=== PATIENT | female | born 1955 | race Caucasian/White ===

== ENCOUNTER 2017-07-27 13:56 | Emergency (ER) | payer OTHER ==
[~2017-07-27] VITALS: Ht 162.6 cm; Wt 71.7 kg
--- NOTE | ~2017-07-27 | EKG ---
[address] [place] [address] ELECTROCARDIOGRAM REPORT Name: BEV BEACH Room #: DEP KATHRYN Drew#: [id number] Admission: 07/27/17 Attend Phys: Discharge: 07/27/17 Date of : 57 Report #: [id number] THIS REPORT FOR: //name// [facility] ED Test Date: 2017-07-27 Test Time: 14:55:19 Pat Name: BEV BEACH Department: Room: Gender: F Bullet Slugs Inspector: MZOOK : 1955 Requested By: Ramos Torres Order Number: [id number] MD: Braulio Condon Measurements Intervals Barnhart Rate: 110 P: 65 WI: 145 QRS: 58 QRSD: 117 T: 4 QT: 337 QTc: 456 Interpretive Statements Sinus tachycardia Nonspecific intraventricular conduction delay Borderline repolarization abnormality No previous ECG available for comparison Electronically Signed On 07-27-2017 21:20:49 RPG DEVELOPER by Braulio Condon [email or web address] <ELECTRONICALLY SIGNED> By: Braulio Condon MD 07/27/170 1455 1455 MD MELINA Lr
[2017-07-27 14:57] LABS: URINE BILIRUBIN NEGATIVE (Negative); URINE BLOOD NEGATIVE (Negative); URINE COLOR YELLOW; URINE GLUCOSE-RANDOM* NEGATIVE (Negative); URINE KETONES NEGATIVE (Negative); URINE LEUKOCYTES-REFLEX NEGATIVE (Negative); URINE PROTEIN (DIPSTICK) TRACE (Negative); URINE SPECIFIC GRAVITY 1.015 (1.005-1.035); URINE UROBILINOGEN 0.2 E.U./dl (0.2-1.0)
[2017-07-27 15:35] VITALS: BP 171/94
== END 2017-07-27 15:45 | disposition home or self-care (01) ==
LOC: ER 13:56
PROVIDERS: Emergency Medicine
DX: R03.0 Elevated blood-pressure reading, without diagnosis of hypertension (principal); F17.210 Nicotine dependence, cigarettes, uncomplicated; Z88.8 Allergy status to other drugs, medicaments and biological substances

== ENCOUNTER 2019-08-23 13:19 | Inpatient (IN) | payer OTHER ==
[~2019-08-23] VITALS: Ht 162.6 cm; Wt 52.5 kg
[2019-08-23 13:29] VITALS: BP 151/92
[2019-08-23 14:10] LABS: HEMATOCRIT 53.8 % (37.0-47.0); HEMOGLOBIN 18.3 gm/dL (12.0-15.0); PLATELET COUNT 316 thou/uL (150-400); RBC 5.38 mil/uL (4.20-5.00); RDW 14.5 % (10.5-14.5); WBC 10.9 thou/uL (4.0-11.0)
[2019-08-23 14:16] LABS: ANION GAP 11 mmol/L (7-16); BUN 15 mg/dL (7-18); CALCIUM 10.4 mg/dL (8.5-10.1); CHLORIDE 98 mmol/L (98-107); CO2 27 mmol/L (21-32); CREATININE 0.9 mg/dL (0.6-1.0); GLUCOSE 70 mg/dL (74-106); POTASSIUM 3.6 mmol/L (3.5-5.1); SODIUM 136 mmol/L (136-145)
[2019-08-23 14:18] LABS: URINE BILIRUBIN NEGATIVE (Negative); URINE BLOOD NEGATIVE (Negative); URINE CLARITY CLEAR; URINE COLOR YELLOW; URINE GLUCOSE-RANDOM* NEGATIVE (Negative); URINE KETONES NEGATIVE (Negative); URINE LEUKOCYTES-REFLEX NEGATIVE (Negative); URINE NITRITE-REFLEX NEGATIVE (Negative); URINE PROTEIN (DIPSTICK) TRACE (Negative); URINE UROBILINOGEN 0.2 E.U./dl (0.2-1.0)
[2019-08-23 14:25] LABS: ABSOLUTE NEUTROPHILS 8.6 thou/uL (1.4-8.2); ANISOCYTOSIS SLIGHT
[2019-08-23 14:26] LABS: ALBUMIN 4.3 g/dL (3.4-5.0); PHOSPHORUS 4.3 mg/dL (2.5-4.9); SALICYLATE 5.9 mg/dL (2.8-20.0); SGOT 20 U/L (15-37); SGPT 27 U/L (30-65); TOTAL BILIRUBIN 0.2 mg/dL (<0.1-1.0); TOTAL PROTEIN 8.6 g/dL (6.4-8.2); TROPONIN-I <0.06 ng/mL (<0.06)
[2019-08-23 14:29] LABS: AMP/METHAMP Negative (Negative); BARBITURATES Negative (Negative); BENZODIAZEPINES Negative (Negative); COCAINE Negative (Negative); METHADONE Negative (Negative); OPIATES Negative (Negative); PCP Negative (Negative)
--- NOTE | 2019-08-23 14:33 | EKG ---
[address] [place] [address] ELECTROCARDIOGRAM REPORT Name: BEV BEACH Room #: PRE M.REmili#: [id number] Admission: Attend Phys: Discharge: Date of : 57 Report #: [id number] THIS REPORT FOR: //name// [facility] ED Test Date: 2019-08-23 Test Time: 14:11:50 Pat Name: BEV BEACH Department: Room: Gender: F Biology Adjunct Instructor: patricio : 1955 Requested By: James Nance Order Number: [id number] MD: Braulio Condon Measurements Intervals [place] Rate: 106 P: 84 RI: 123 QRS: 76 QRSD: 82 T: 69 QT: 345 QTc: 459 Interpretive Statements Sinus tachycardia Biatrial enlargement Compared to ECG 07/27/2017 14:55:19 Electronically Signed On 08-23-2019 14:32:43 VETERINARY MEDICINE TEACHER by Braulio Condon [email or web address] <ELECTRONICALLY SIGNED> By: Braulio Condon MD 08/23/19 1432 1411 1411 Braulio Condon MD /SAMANTA
[2019-08-23 18:12] VITALS: BP 120/90
--- NOTE | 2019-08-23 18:49 | NUR ---
PT. ARRIVED FROM ER PER W/C. SHE IS A WHITE FEMALE. DURING THE ENTIRE TIME SHE WAS BEING ADMITTED SHE KEPT ASKING FOR PAIN MEDICATIONS AND ADD MEDICATIONS. SHE STATES SHE HAS NOT BEEN TAKING HER BIPOLAR MEDICATIONS SINCE ABOUT JUNE. SHE STATES SHE WAS DIAGNOSED WITH BIPOLAR ABOUT 20 YEARS AGO. SHE STATES SHE WAS BROUGHT HER BY A POLICE PERSON BECAUSE SHE WAS OUTSIDE WITHOUT CLOTHES OR SHOES TALKING TO THE NEIGHBORS. SHE WAS NOT MAKING ANY SENSE AND HAD A LOT OF FLIGHT OF IDEAS AND SO THE POLICE WAS CALLED AND SHE WAS BROUGHT HERE. SHE STATES SHE GOES TO THE [employer]. SHE STATES SHE HAS CHRONIC PAIN IN HER RIGHT LEG FROM OLD INJURIES. SHE HAS ALLERGIES TO HALDOL AND THORAZINE. SHE IS AWAKE AND ALERT TIMES 3. DR. LU WAS INFORMED OF HER ADMISSION. DR. MYERS NOTIFIED OF ADMISSION, BUT P.A. RAILROAD EMERGENCY SERVICES MANAGER WILL BE NOTIFIED AFTER 7 PM.
[2019-08-23 20:10] VITALS: BP 97/72
--- NOTE | 2019-08-24 04:23 | NUR ---
PT CALM ET COOPERATIVE. PT AMBULATES HALLS AD JOSE. PT WAS GIVEN TYLENOL 650MG PO PRN FOR R KNEE PAIN OF 4/10 WITH A REASSESSMENT SCORE OF 2/10. PT PERSEVERATING ON MEDICATIONS. PT STATES THAT SHE GETS ALL OF HER MEDICATIONS FROM DR. WORLEY'S OFFICE WITH [facility]. PT DENIES USING ANY RETAIL PHARMACY. PT WAS INFORMED THAT WE WOULD NEED TO WAIT UNTIL DAY SHIFT TO CALL DR. WORLEY'S OFFICE TO RECONCILE HER MEDICATION. PT VERBALIZED UNDERSTANDING. PT IN ET OUT OF ROOM SEVERAL TIMES THROUGHOUT NOC UNTIL AFTER MIDNIGHT WHEN PT SETTLED DOWN TO REST. WILL CONTINUE TO MONITOR PER PROTOCOL.
[2019-08-24 07:50] VITALS: BP 107/67
--- NOTE | 2019-08-24 11:37 | NUR ---
Sw met with pt to discuss her intake assesment and treatment plan. Pt admits t iractic behavior but justifies it and feels " misunderstood." Pt has services with [facility] and lives in [employer] housing. She could not identify her CM at [facility]. Pt feels like her housing might be comprimsed because of her behaviors. Sw educate dpt on role of SW and d/c planning. Pt is willing to particpate in inpt treatment.
--- NOTE | 2019-08-24 16:10 | NUR ---
0730 Up ambulating in halls without s/o distress. Alert and orientated X 4. Denies SI/HI. Multiple requests for different meds. States R knee is very painful 10/10. Tylenol given for pain. Breath sounds clear t/o, bilaterally equal. Reg HR auscultated. Color pink with brisk capillary refill and palpable peripheral pulses. Independent with voiding. Active bowel sounds over soft, flat abdomen. Spoke with DIVE SUPERINTENDENT Abood this am. 1500 States she is anxious. Quetipine given per prn order. Napped in room this afternoon. Multiple phone calls from/to family. Spoke with Dr. Kunz after several requests to see a physician. Now states she is hungry and requesting snacks. Kristopher crackers and peanut butter given. Wants Dr. Kunz to know that she wants to be restarted on her Synthroid. Will pass along msg.
[2019-08-24 21:03] VITALS: BP 110/62
--- NOTE | 2019-08-25 05:17 | NUR ---
PT CALM ET COOPERATIVE. PT CONTINUES TO CONSISTENTLY COME TO NURSE STATION TO ASK QUESTIONS ABOUT MINOR THINGS. PT WAS GIVEN TRAZODONE PRN FOR SLEEP ET TYLENOL PRN FOR PAIN THIS SHIFT. DENIES SI, HI, ET PSYCHOSIS. AMBULATES HALLS AD JOSE. WILL CONTINUE TO MONITOR PER PROTOCOL.
[2019-08-25 09:05] VITALS: BP 111/65
--- NOTE | 2019-08-25 10:56 | NUR ---
SW reviewed pt's chart and saw that she has been cooperative while on the unit. SW saw that she receives services through [facility]. SW will contact [facility] and attempt to locate her CM. SW team will continue to follow pt during her stay.
--- NOTE | 2019-08-25 13:45 | NUR ---
ASSUMED CARE OF PATIENT AT 0710 ON 08/25/19. PATIENT IN DAYROOM WATCHING TV WITH OTHER PATIENTS AT THIS TIME. PATIENT AMBULTAING IN [place] BEFORE BREAKFAST. PATIENT SITTING IN DAYROOM FRO BREAKFAST. MEDS TAKEN WHOLE WITHOUT DIFFICULTY. COMMUNICATING WITH OTHER PATIENTS WELL. DENIES SI/HI AND AVH AT 1120 PATIENT COMPLAINS OF PAIN AND REQUESTS TYLENOL. TYLENOL 2 TABS GIVEN. RATES PAIN 10 TO RIGHT KNEE. WILL CONTINUE TO ASSESS.
[2019-08-25 20:09] VITALS: BP 125/64
--- NOTE | 2019-08-25 23:04 | NUR ---
ASSUMED CARE ON 08/25/19 @ 19:15, UP AD JOSE, COMMING TO THE NURSES DESK REPEATEDLY ASKING FOR TYLENOL. ASSESSED FOR PAIN LEVEL OF 5/10 IN THE KNEE, AND PROVIDED PRN TYLENOL 650 @ 20:05. REPEATEDLY ASKS IF SHE IS BEING TAKEN OFF HER MEDICATIONS, REPEATS THE SAME QUESTIONS NUMEROUS TIMES. ORIENTED X4 NOTED TO BE ANXIOUS. DENIES SI, HI, AH AND VH. CURRENTLY IN BED WITH EYES CLOSED AND RESPIRATIONS EVEN AND UNLABORED. BED IN LOW POSITION, BED ALARM SET. WILL CONTINUE TO MONITOR Q 12 MIN FOR PATIENT SAFETY.
--- NOTE | 2019-08-26 03:19 | NUR ---
PATIENT AWAKENED @ 0308, TOILETED SELF AND CAME TO THE DAY ROOM. AGREED TO TAKE SEROQUEL 25 PO FOR ANXIETY ET RESTLESSNESS, AND TYLENOL 650 FOR 5/10 KNEE PAIN. NICOTINE PATCH STILL ON LEFT DELTOID, REMOVED TO AID IN SLEEPING.
[2019-08-26 03:22] VITALS: BP 125/64
[2019-08-26 05:18] LABS: FOLIC ACID 9.3 ng/mL (8.6-58.9)
--- NOTE | 2019-08-26 06:02 | NUR ---
SLEPT 9.4 HOURS
--- NOTE | 2019-08-26 07:30 | NUR ---
Assumed care of patient this am. Patient in room sleeping. Patient calm, content and overall pleasant. Patient ambulates without assistance. Patient takes medications whole with thin fluids. Patients states that she has pain in her knees. Patients assessment shows clear breath sounds, active bowel sounds, and s1 s2 heard with auscultation.
[2019-08-26 08:00] VITALS: BP 104/49
[2019-08-26 08:54] VITALS: BP 104/49
--- NOTE | 2019-08-26 12:06 | NUR ---
DE contacted [facility] and left a message for their early breastfeeding care specialist explaining that DE is attempting to locate pt's correctional casework specialist. SW team will continue to follow pt during her stay on this unit.
--- NOTE | 2019-08-26 14:28 | NUR ---
DE received a call from Ayden ([phone]) with [facility] stating that he has been contacted a few times in relation with pt. This last time she was outside wandering without proper clothes on for the weather. It is his belief that she needs a guardian. He has been in contact with her Sister Michelle Rivera ([phone]), who has also been paying pt's bills because pt is unable to. Pt is close to being evicted from her apartment due to non-payment, and her utilities are due for shut off. Ayden says Michelle is interested in being pt's guardian. DE said she will attempt to talk with pt about DPOA and about LIANA for her sister Michelle. Ayden also mentioned that pt has a history of erratic behaviors when she is not on her meds. DE asked if he knew who her casemanager was, and Ayden explained pt does not have one because she does not consistently take her meds. Ayden said that he and Officer Abdirahman with the [place] [employer] de[employer] is familiar with pt. DE talked with pt about DPOA. Pt immediately became suspicious and said she was told that DPOA means that someone else can control everything. SW provided education on DPOA vs Guardianship. Pt was paranoid that someone was going to attempt to assign her a DPOA. DE again explained that is not how that works. Pt is oriented to day, season, and current events. However, she is adamant she does not want a DPOA. DE received a call from Pamela Tillman with [facility] ([phone]) stating that she has been acting as pt's casemanager, but has not had one due to her non-compliance with medication. She has been seen by [facility] since 04/2017 but tends to not be compliant with meds. She said it was her plan to refer pt to adult casemanagement, as pt has only become known to her within the last week on a crisis basis. DE received a call from Aries with [facility] ([phone]) confirming that pt has a psych appt on 09/25 @0915a for crisis follow-up. DE talked with pt and asked her to sign a LIANA with [facility]. While she was very suspicious at first, after SW explained to her several times that she is not signing her rights away, and that the psych doctor would just like to review her records, she signed the release. SW talked with pt about her sister. Pt became very paranoid that SW would tell her all of her business. SW explained that she cannot tell her sister anything without her consent. Pt wanted to call her sister with SW in her presence. SW dialed the number in her office. No answer. SW left a message stating that her and pt were calling. Pt said that when her sister calls back she wants her to tell her that pt wants to speak with her, but does not want SW talking about anything concerning her care with her sister. SW explained that since she has not given consent she cannot talk to her sister about her care, and will follow her wishes. Pt explained that people think that she does witchcraft and she cried with SW. She apologized for appearing argumentative. She knows nothing about walking outside without clothing. She said at most she walked outside without her shoes. SW team will continue to follow pt during her stay on this unit.
[2019-08-26 19:23] VITALS: BP 112/66
--- NOTE | 2019-08-27 01:47 | NUR ---
Assessments completed. pt a&o but very anxious and forgetful. pt kept coming up to nurse with random questions and requests. prn meds given. pt is resting well. v/s have been stable. pt denies si/hi. no s/s of acute distress. will cont to monitor
[2019-08-27 09:46] VITALS: BP 139/71
--- NOTE | 2019-08-27 14:07 | NUR ---
ASSUMED CARE OF PATIENT AT 0720 ON 08/27/19. PATIENT SITTING IN DAYROOM QUIETLY ON COUCH. PATIENT WAITING FOR BREAKFAST AND DENIES NEEDS AT THIS TIME. 0830 PATIENT AMBULATING IN [place]. COMPLAINS OF PAIN TO RIGHT KNEE RATING AT A 10. TYLENOL 650 MG GIVEN PO WITH ROUTINE MEDICATION. PARTICIPATES IN GROUP WITH THE RECREATIONAL THERAPIST. PATIENT STATES PAIN DECREASED TO A 7 ON A NUMERIC PAIN SCALE. PATIENT TRANSPORTED VIA WC TO RADIOLOGY FOR CT OF THE HEAD, ACCOMPANIED BY MEDICAL RECORDS TECH AND NURSE SALES ACCOUNT COORDINATOR. PATIENT IN DAY ROOM AT 1155 FOR LUNCH. PATIENT ASKING MULTIPLE QUESTION WITH CONCERNS TO HER ANSWERS THAT ARE GIVE TO STAFF BY HERSELF. SHE WORRIES IF SHE IS ANSWERING INCORRECTLY THAT IT WILL AFFECT HER LEAVING AND GOING HOME. DENIES SI/HI & AVH.
--- NOTE | 2019-08-27 16:47 | NUR ---
AT 0800 BP 143/110 P 63, PT DENIES CHEST PAIN, DIZZINESS OR CONTRERAS. BP RECHECKED WITH RESULTS OF 120/48. DR BOLAÑOS VIEWED RESULTS AND ORDERED ORTHOSTATIC BP'S WITH PULSE. AT 1150 ORTHOSTATIC BP'S- STANDING BP 104/67 P 73/ SITTING BP 124/[address] BOLAÑOS VIEWED RESULTS.
--- NOTE | 2019-08-27 17:38 | NUR ---
DE received a phone call from pt's sister Michelle stating that the [facility] worker Ayden was sending her a listing of attorneys in [place]. It is Michelle's plan to get into contact with one loreta and then pursue guardianship. SW said ok, and that she cannot tell her anything because pt has not signed a LIANA. Michelle told SW that she spoke with pt after her visit with her daughter and another sister yesterday, and explained to her that if she does not know what is going on she cannot help her. She also revealed to pt that she paid her rent for her. Michelle explained that pt just got a substantial amount of money for [employer] and she has income, when she asked pt where that money was she responded with "I dont know." Pt several times said to SW that she spoke to sister and wants to sign a LIANA. Pt signed a LIANA with SW stating that she and staff can provide updates to Michelle. SW team will continue to follow pt during her stay on this unit.
--- NOTE | 2019-08-27 18:33 | NUR ---
AT 1755 SEROQUEL 25MG GIVE PO FOR ANXIETY- PATIENT REQUESTED MED. TYLENOL 650MG GIVEN FOR COMPLAINTS OF KNEE PAIN RATING A 7 ON NUMERIC PAIN SCALE.
[2019-08-27 20:17] VITALS: BP 132/69
--- NOTE | 2019-08-28 02:53 | NUR ---
ASSUMED CARE OF PATIENT ON 08/27/2019 AT 1915. BEV IS ALERT AND ORIENTED X3, SHE HAS BEEN CALM AND COOPERATIVE THROUGHOUT THE EVENING. SHE APPEARS WITH A EUTHYMIC AFFECT. SHE REPORTED INITIAL INSOMNIA AND REPORTED 'I HAD A NIGHTMARE OR SOMETHING AND I JUST WOKE UP AND IT SCARED ME.' ADMINISTERED PRN SEROQUEL ORDERED FOR ANXIETY. SHE DOES DENY SI HI AND FEELINGS OF DEPRESSION. SHE DENIES MEDICAL CONCERNS WITH NO S/S OF DISTRESS. NURSING WILL MAINTAIN ALL PRECAUTIONS TO ENSURE SAFETY AT ALL TIMES.
[2019-08-28 09:23] VITALS: BP 140/68
--- NOTE | 2019-08-28 12:01 | NUR ---
Up ambulating t/o unit without s/o distress. States R knee pain a 10, decreased to a 5 with Tylenol. Denies SI/HI. Alert and orientated X4. In testing this AM. Breath sounds clear t/o, bilaterally equal. Reg HR auscultated. Color pink with brisk capillary refill and palpable peripheral pulses. Active bowel sounds over soft, flat abdomen.
[2019-08-28 13:03] LABS: ALBUMIN 3.7 g/dL (3.4-5.0); CALCIUM 10.2 mg/dL (8.5-10.1); CREATININE 0.7 mg/dL (0.6-1.0); POTASSIUM 3.9 mmol/L (3.5-5.1); TOTAL BILIRUBIN 0.2 mg/dL (<0.1-1.0); TOTAL PROTEIN 7.5 g/dL (6.4-8.2)
[2019-08-28 13:44] LABS: HEMATOCRIT 44.4 % (37.0-47.0); HEMOGLOBIN 14.8 gm/dL (12.0-15.0); MCH 33.5 pg (26.0-34.0); MCHC 33.2 g/dL (28.0-37.0); MCV 100.9 fL (80.0-100.0); RBC 4.41 mil/uL (4.20-5.00); RDW 14.4 % (10.5-14.5); WBC 5.7 thou/uL (4.0-11.0)
[2019-08-28 19:36] VITALS: BP 134/63
--- NOTE | 2019-08-29 04:38 | NUR ---
PT CALM ET COOPERATIVE. PT LESS ATTENTION-SEEKING THIS SHIFT THAN PREVIOUSLY. TYLENOL 650MG PO GIVEN FOR R KNEE PAIN. SEROQUEL 25MG PO ET TRAZODONE 100MG PO GIVEN FOR ANXIETY ET INSOMINIA THIS SHIFT. PT AMBULATES HALLS AD JOSE. TOOK MEDICATIONS WHOLE WITHOUT DIFFICULTY. PT CURRENTLY RESTING IN BED WITH EYES CLOSED. WILL CONTINUE TO MONITOR PER PROTOCOL.
[2019-08-29 09:18] VITALS: BP 128/60
--- NOTE | 2019-08-29 11:36 | NUR ---
Nutrition: Pt NA x2 during RD visit to unit. With other staff (OT, later RN). Assessed by RD at start of week on 08/26, following up today. Despite low weight status with BMI 17.3, pt eating incredibly well all week. Often eating 80-100% of most meals. Meal average = 87% per the last 14 recorded meals over 5 days. Receiving Ensure Enlive BID for added energy benefit and drinking 75-100% of almost all supplements. This adds 750 kcals, 40 g protein/day. No new weights to review since 08/24. Met severe malnutrition criteria, but both PO and supplement intake are at very high rates. No new interventions to add at this time. Will continue to monitor po trends and future weights for any decline, otherwise keep as low nutrition risk.
--- NOTE | 2019-08-29 15:30 | NUR ---
Mariama approched me and asked me for medications to help "relax me". Mariama just finshed group dealing with relaxation. I asked if she had tried alternative methods of relaxation instead asking for medications. Mariama began talking about her sunglasses and going to the bathroom. I stated "you are not answering my question." She stated that she would go and sit down.
--- NOTE | 2019-08-29 16:21 | NUR ---
Up ambulating in halls without s/o distress. Alert and orientated x 3. Denies SI/HI. States pain improved with Tylenol, now about a 5 in R knee, chronic pain. Quetiapine given late morning per request for anxiety. Breath sounds clear t/o, bilaterally equal. Reg HR auscultated. Color pink with brisk capillary refill and palpable peripheral pulses, hands slightly cool. Voiding independently. Active bowel sounds over soft, flat abdomen. Testing being done by OT.
[2019-08-29 19:44] VITALS: BP 115/59
--- NOTE | 2019-08-30 03:46 | NUR ---
Pt calm et cooperative this shift. Pt ambulates halls ad yohan with steady gait. Pt took meds whole without difficulty. No behaviors noted this shift. AOX3 et all health assessments WNL. Pt socializes with peers on the unit. Pt was given Trazodone for insomnia PRN this shift. Currently resting in bed with eyes closed. Will continue to monitor per protocol.
[2019-08-30 07:30] VITALS: BP 106/68
[2019-08-30 10:09] VITALS: BP 106/68
--- NOTE | 2019-08-30 10:35 | NUR ---
0645 RESUMMED CARE FROM OVERNIGHT SHIFT, PATIENT UP IN DAY ROOM LESS ANXIOUS AND LESS INTRUSIVE. PATIENT ATE BREAKFAST TOOK MEDICATION WITHOUT INCIDENCE. PATIENT PARTICIPATED IN GROUPS, PATIENT WANTS TO GO HOME PATIENT COOPERATIVE WILL CONTINUE TO MONITOR FOR BEHAVIOR AND SAFETY.
--- NOTE | 2019-08-30 11:31 | NUR ---
SW and psych doctor met with pt and asked her if she had read her neuro psych report. She had not. She asked about her sister being her DPOA. The psych doctor and SW talked to her about guardianship because she may not be able to sign a DPOA. The psych doctor screened her again to see if she understood DPOA, and she could not stay on task. However, she did say she is okay with her sister being her guardian. She just wants to make sure it is a place that is located east and she can smoke cigarrettes outside. SW team will continue to follow pt during his stay on this unit.
[2019-08-30 14:32] LABS: CALCIUM 10.2 mg/dL (8.5-10.1); CREATININE 0.9 mg/dL (0.6-1.0); PHOSPHORUS 5.2 mg/dL (2.5-4.9)
[2019-08-30 19:56] VITALS: BP 136/65
--- NOTE | 2019-08-30 21:36 | NUR ---
Care assumed of patient at 1915: Patient seated on the couch at start of shift. Interacting fairly well with staff and peers. Patient alert and oriented x3-4. Patient primarily calm and cooperative. Patient did question nurse why we ask her "all these questions every day". Once nurse educated patient on reasoning, she answered all questions appropriately. Patient sarcastic at times. Denies SI/HI/AH/VH. No aggression or agitated observed at this time. Patient kindly and respectfully asked for HS snack. Ate 100% HS snack. Patient took HS medication whole without difficulty. Patient attention seeking at times. Patient was able to go to bed at a reasonable hour and appeared to be sleeping for approximately 30 minutes. However, patient is up now in the dayroom, sitting on the couch, rocking back and forth whenever she sees staff walking around or is looking at her. With no staff present, she is visualized sitting quietly watching TV. Patient had someone call to speak with her which had to be declined due to reaching her 2 phone call limit. Patient has not asked to use the phone. Patient took a shower this evening. Visualized pacing from her room to dayroom a couple different times this evening, however, it is not continuously.
--- NOTE | 2019-08-31 07:30 | NUR ---
Assumed care of patient this am. Patient sitting in [facility]. Patient ambulates without assistance. Patient takes medications whole with thin fluids. Patient affect soft. Patient denies pain. Patients assessment shows clear breath sounds, active bowel sounds, and s1 s2 heard with auscultation.
[2019-08-31 08:00] VITALS: BP 122/70
[2019-08-31 08:23] VITALS: BP 122/70
[2019-08-31 19:22] VITALS: BP 103/58
--- NOTE | 2019-08-31 22:17 | NUR ---
ASSUMED CARE ON 08/31/19 @ 19:15. PATIENT HAS A TOWEL WRAPPED AROUND HER HEAD, RECEIVED INFORMATION THAT THIS IS HER 4TH TIME TO WASH HER HAIR TODAY. PT ASKED IN THE EVENING ABOUT TAKING A SHOWER. REMINDED THAT SHE HAD SHOWERED AND WASHED HER HAIR X4, THAT SHE IS NOT TO TAKE ANOTHER SHOWER UNTIL TOMORROW AFTER BREAKFAST. COOPERATED WITH ASSESSMENT, TOOK MEDS PO WITH WATER. TRAZADONE 50 MG PROVIDED FOR INSOMNIA AND SEROQUEL 25 PROVIDED FOR REPETITIOUS BEHAVIORS AND ROCKING BACK AND FORTH. REPORTS PAIN @ 2/10 IN HER KNEE AT THIS TIME. HEART RRR, S1S2 NOTED. LUNGS CTA ALL JI, REMOVED NICOTINE PATCH @ 2200. ABD SOUNDS NORMOACTIVE X 4 Q, REPORTS BM THIS MORNING.
[2019-08-31 22:30] VITALS: BP 103/58
--- NOTE | 2019-09-01 06:16 | NUR ---
SLEPT OFF AND ON FOR A TOTAL OF 5 HOURS SLEEP.
[2019-09-01 07:48] VITALS: BP 102/56
--- NOTE | 2019-09-01 08:00 | NUR ---
Assumed care of patient this am. Patient sitting in [facility]. Patient ambulates without assistance. Patient cooperative with medications. Patient takes medications whole. Patient has been seen rocking in her chair intermittently. Patient appears restless. Patients assessment shows clear breath sounds, active bowel sounds, and s1 s2 heard with auscultation.
[2019-09-01 08:30] VITALS: BP 102/56
[2019-09-01 19:36] VITALS: BP 130/73
--- NOTE | 2019-09-02 03:15 | NUR ---
Assumed care of pt @ 1900. Pt slightly agitated at start of shift. Pt was given PRN Seroquel for help with insomnia/agitation this shift. Pt took meds whole without difficulty. VSWNL. Pt ambulates halls ad yohan with steady gait. Currently resting in bed with eyes closed. Will continue to monitor per protocol.
[2019-09-02 07:57] VITALS: BP 108/63
[2019-09-02 08:10] VITALS: BP 108/63
[2019-09-02 13:12] LABS: GLOBULIN TOTAL 2.6 g/dL (2.2-3.9); M-SPIKE Not Observed g/dL (Not Observed)
--- NOTE | 2019-09-02 14:48 | NUR ---
DE was approached by pt several times stating that her daughter will now be here guardian. DE received a vm from pt's daughter Ashley asking for a return call at [phone]. Ashley said she is planning to visit her mom today at 1600, but needed to know if she needed to come now and signed guardianship docs. DE provided Ashley education on the guardianship process; she advised the info her mom is giving is incorrect. DE advised that while her mom's thoughts are scattered to take what she says with a grain of salt. Ashley agreed. DE contacted Michelle who said she is aware pt is calling her daughter repeatedly and she has also advised Ashley that pt's information is inaccurate. She said she is currently waiting for her lawyer probate to call right now so she can pay the fee and begin the guardianship process; she said she was advised by the psych doctor that after the petition is filed it will take approx. 30 days for the hearing. DE provided eduation on the guardianship steps, and also agreed that the hearing occurs around 30 days after the petition is filed in [facility]. She said she plans to give her apartments notice now that pt will not be returning. She said she has a place in mind of where pt can go, but will be touring other places as well. DE informed her that DE was told by pt that she wants a place to smoke, and prefers to stay in [facility]. Michelle said she will work with pt's desires to find her a good place. Today is a holiday, so DE advised that if Michelle is not able to get the guardianship process started until tomorrow that is fine. DE provided the psych doctor with an update. SW team will continue to follow pt during her stay on this unit.
--- NOTE | 2019-09-02 15:14 | NUR ---
ASSUMED PT CARE AT 0715. PT WAS CALM AT BREAKFAST THOUGH BECAME ANXIOUS AND SLIGHTLY AGITATED. TOOK MEDS WHOLE WITH BREAFAST. PT IS ALERT AND ORIENTED TO SITUATION. RESTING AT THIS TIME WITH EYES CLOSED. WILL CONT POC.
--- NOTE | 2019-09-03 04:03 | NUR ---
Assumed care of pt @ 1900. Pt calm et cooperative this shift. Pt ambulates halls ad yohan with steady gait. Pt was given PRN Tylenol for pain et Seroquel for anxiety this shift. Pt took meds whole without difficulty. VSWNL. Assessment done with no abnormalities noted at this time. Pt slightly anxious towards early am hours but currently resting in bed with eyes closed. Will continue to monitor per protocol.
[2019-09-03 07:49] VITALS: BP 100/59
--- NOTE | 2019-09-03 10:29 | NUR ---
DE received a call from pt's sister Michelle asking for a guardianship letter for her litigation attorney from the psych doctor. DE sent an email to the psych doctor with this request. DE told Michelle she will call her back when she hears from the psych doctor. SW team will continue to follow pt during her stay on this unit.
--- NOTE | 2019-09-03 19:32 | NUR ---
Assumed care of patient this am. Patient up in the mileu. Patient denies pain at this time. Patient ambulates without assistance. Patient takes medications whole with fluids. Patients assessment shows clear breath sounds, active bowel sounds, and s1 s2 heard with auscultation. Patient paces frequently.
[2019-09-03 20:19] VITALS: BP 124/66
--- NOTE | 2019-09-04 01:27 | NUR ---
ASSUMED CARE ON 09/03/19 AT APPROXIMATELY 1915, CONDUCTED ONE TO ONE WITH PATIENT IN DAY ROOM, SHE APPEARS WITH AN EXPANSIVE AFFECT, SOMEWHAT NEAT APPEARANCE. SHE REPORTS TO THIS RN THAT SHE IS 'GREAT BECAUSE I GOT GOOD NEWS THAT IM NOT MANIC ANYMORE.' THROUGHOUT THE CONVERSATION SHE WAS HYPERVERBAL AND HAD A DIFFICULT TIME SITTING STILL. SHE WAS MEDICATION COMPLIANT WITH NO ISSUES. SHE DENIES SI HI OR HALLUCINATIONS. SHE DENIES MEDICAL CONCERNS WITH NO S/S OF DISTRESS. AT THIS TIME PATIENT IS UP WALKING BRISKLY AROUND THE UNIT STAFF ENCOURAGING SLEEP. WILL MAINTAIN ALL PRECAUTIONS FOR SAFETY.
[2019-09-04 07:41] VITALS: BP 125/60
[2019-09-04 11:11] VITALS: BP 125/60
--- NOTE | 2019-09-04 11:21 | NUR ---
0648 RESUMMED CARE FROM OVERNIGHT SHIFT, PATIENT UP IN DAY ROOM READY FOR BREAKFAST. PATIENT TOOK MEDICATION WITHOUT INCIDENCE. PATIENT VERY ANXIOUS AND WALKS AROUND, WHEN SHE SITS IN THE DAY ROOM SHE ROCKS BACK AND FORTH. SHE STATES IT HELPS HER CALM DOWN, PATIENT COMES TO NURSES STATION TO ASK FOR THE PHONE AND GOING IN THE HER LOCKER FOR MAKE UP. PATIENT'S PHONE CALLS ARE LIMITED TO 2 CALLS A SHIFT FOR 15 MINUTES. WILL CONTINUE TO MONITOR FOR BEHAVIORS AND SAFETY.
--- NOTE | 2019-09-04 14:27 | NUR ---
Nutrition followup: pt continues to eat very well, 100% of most every meal, 100% of supplements, Ensure Enlive BID. Weight up a favorable 8# from admit. BMI remains low at 18.2. Hypercalcemia over admit, plan to r/o myeloma. Continues to be hyperverbal and anxious. Due to excellent intake of meals/supplements and weight gain, keep as low nutrition risk. Follow weekly.
[2019-09-04 19:40] VITALS: BP 109/66
[2019-09-04 21:52] VITALS: BP 109/66
--- NOTE | 2019-09-04 21:59 | NUR ---
PATIENT CAME TO NURSE STATION AT 1930 STATING SHE DIDN'T THINK SHE GOT ANY OF HER NOON MEDS. I LOOKED UP HER EMAR AND EXPLAINED THAT SHE NO LONGER HAD NOON MEDS AND HAD MOVED THEM TO [facility] AND HS. PATIENT THEN REQUESTED SOMETHING FOR ANXIETY. HAD PATIENT SIT IN DINING ROOM AND RELAX AND EAT SNACK. I GAVE HER SEROQUEL PRN WITH HER HS MEDS. PATIENT WAS COOPERATIVE AND WENTTO BED AROUND 0. SHE DENIES PAIN TONIGHT. ANXIOUS ABOUT HER BIPOLAR AND NOT WANTING TO GET IN TO A MANIC PHASE AGAIN. CONTINUING TO MONITOR.
--- NOTE | 2019-09-05 04:37 | NUR ---
PATIENT HAS SLEPT MOST OF NIGHT. SHE DID AWAKEN AROUND MIDNIGHT AND WAS RESTLESS BUT SHE STAYED IN BED AND SHORTLY FELL BACK TO SLEEP. PATIENT APPEARS TO BE SLEEPING COMFORTABLY AT THIS TIME. BED IN LOW POSITION. WILL CONTINUE TO MONITOR.
[2019-09-05 07:48] VITALS: BP 103/58
--- NOTE | 2019-09-05 09:58 | NUR ---
DE contacted both Ashley and Michelle to schedule a family meeting for pt. DE team will continue to follow pt during her stay on this unit.
--- NOTE | 2019-09-05 10:07 | NUR ---
DE spoke with Michelle who said the consumer attorney has been paid, but explained to both Ashley and Michelle that the hearing may go better if Ashley is the guardian; Michelle will be consulting her and is a back up option. This is because Ashley lives in the same state as pt. She also said that she is flying to the area 09/19/19 and will be here until 09/23/19. They will be looking at placement for pt. She will also be here for pt's birthday. DE provided this update for pt. Pt became agitated because she felt like SW said she would have to be on the unit until her sister got here. SW explained that is not what she said, and that she does not make that decision at all. Pt did not accept this explanation. SW team will continue to follow pt during her stay on this unit.
--- NOTE | 2019-09-05 10:44 | NUR ---
THIS RN CAME TO SIT IN THE DINING ROOM THIS MORNING. PT. WAS ON THE COUCH AND PROMPTLY GOT UP AND CHRISSIE TO A CHAIR FURTHER AWAY FROM THIS RN. THEN HUFFED OUT OF THE ROOM AND TO HER BEDROOM. THIS CONTRACTING EXECUTIVE WAS CHECKING ON HER, I INITIATED CONVERSATION WITH HER TO WHY SHE IS UPSET. SHE STARTED SPOUTING ABOUT HOW THE PRODUCT ARCHITECT TALKED TO HER SISTER AND SHE DID NOT. SHE THOUGHT IT WAS NOT RIGHT SHE COULDN'T TALK TO HER SISTER ALSO. SHE STATED, "THEY ARE SPLITTING ME AND MY FAMILY. I'LL JUST TELL THEM TO HAVE A NICE LIFE AND I'LL GO MY WAY". WITH THAT, SHE LEFT HER ROOM AND QUICKLY WALKED TO THE DINING ROOM.
--- NOTE | 2019-09-05 12:43 | NUR ---
Up ambulating t/o unit all morning. Upset because social service assistant told her that her sister was visiting her over her birthday. She is angry that SW is speaking to her sister for her and she can't understand why she can't talk directly to her sister. Also states she was told by Dr. Eid that she would be discharged on Monday and states that SW telling her that her sister would visit for her birthday makes it seem that discharge will be sometime in September. Resistant to physical assessment stating that she feels like she is being strip searched and that she is in halfway. Denies SI/HI and doesn't not mention pain when asked how she is doing. Breath sounds clear t/o, bilaterally equal. Reg HR auscultated. Color pink with brisk capillary refill and palpable peripheral pulses. Voiding independently. Active bowel sounds over soft, flat abdomen. Requesting items from locker to take bath, provided and returned to locker.
[2019-09-05 21:00] VITALS: BP 110/54
[2019-09-05 21:48] VITALS: BP 110/54
--- NOTE | 2019-09-06 03:27 | NUR ---
PATIENT WAS UP IN DINING ROOM THIS EVENING. SHE HAS BEEN CALM AND APPROPRIATE. A NEW ORDER FOR LITHIUM 450MG WAS RECEIVED. SHE HAD BEEN ON 300MG. WHEN PATIENT WAS ALERTED OF INCREASE SHE ASKED WHY THE INCREASE AND THEN SHUT DOWN. SHE WENT AND SAT ON THE COUCH IN THE DINING ROOM AND BEGAN ROCKING HERSELF BACK AND FORTH, WHILE STARING STRAIGHT AHEAD. I APPROACHED AND ASKED IF SHE WAS OK. SHE STATES THAT SHE THOUGHT SHE WAS DOING WELL AND SHE DOESN'T FEEL MANIC. SHE STATES THAT SHE IS WORRIED BECAUSE WHEN SHE WAS PUT ON A HIGH DOSE OF LITHIUM BEFORE THAT SHE HAD TREMORS AND A SEIZURE. SHE SAID THIS IS WHY IT WAS STOPPED BEFORE AND SHE WAS PUT ON TRILEPTA. I TOLD HER SHE WAS DOING VERY WELL AND THE DOCTOR IS JUST TRYING TO GET HER TO A MAINTENANCE DOSE THAT WILL SUSTAIN HER THRU THE DAY AND HOPEFULLY DELAY A SET BACK. I AGAIN TOLD HER THAT SHE HAS IMPROVED MUCH AND CONTINUES TO IMPROVE. I TOLD HER SHE IS DOING WELL. SHE CALMED BUT CONTINUED ROCKING FOR A FEW MINUTES BEFORE GOING TO BED. SHE WAS GIVEN SEROQUEL 25MG AT 2110, A HALF HOUR BEFORE LITHIUM DOSE GIVEN. PATIENT IS SLEEPING AT THIS TIME. RELAXED AND NO APPARENT DISTRESS. NO PAIN ISSUES TONIGHT. SHE DID STATE THAT SHE DOES KNOW THAT SHE IS GAINING WEIGHT BECAUSE SHE CAN'T SEE HER RIBS ANYMORE. SHE IS OK WITH THIS. SHE HAS BEEN EATING 100% AT MEALS AND 100% AT HS SNACK TIME. BED IN LOW POSITION. CONTINUING TO MONITOR AND ROUTINE WALKING ROUNDS.
--- NOTE | 2019-09-06 04:46 | NUR ---
PATIENT AWOKE SUDDENLY AND WALKED OUT TO DINING ROOM AT 0400. SHE STATES SHE JUST WOKE UP AND DOES NOT FEEL SLEEPY. SHE SAT AND ROCKED BACK AND FORTH ON THE COUCH FOR ABOUT 20 MINUTES. ENCOURAGED HER TO GO BACK TO ROOM AND LAY DOWN AND REST. PATIENT DID AND RETURNED TO NURSE STATION JUST NOW AND ASKED IF SHE COULD JUST STAY UP IN DINING ROOM. SHE STATES SHE CAN'T SLEEP. SHE HAS SLEPT FOR 6 TO 7 HOURS. PATIENT IS SITTING IN DINING ROOM NOW. DENIES PAIN AND ANXIETY. CONTINUING TO MONITOR.
--- NOTE | 2019-09-06 06:21 | NUR ---
WHEN GIVING THYROID MEDICINE TO PATIENT THIS MORNING, I NOTICED TREMORS IN BOTH HANDS. PATIENT WAS STILL ABLE TO MANAGE THE CUP AND MED IN HER HANDS BUT NOTICEABLE TREMORS ARE NOTED NOW AT THIS TIME. HAVE NOT NOTED THEM THIS SIGNIFCANTLY EARLIER IN SHIFT. PATIENT IS LAYING DOWN BACK IN HER ROOM NOW.
[2019-09-06 09:01] VITALS: BP 121/62
--- NOTE | 2019-09-06 16:16 | NUR ---
DE attended a family meeting with Ashley, pt, and the psych doctor. At this meeting the psych doctor determined that pt has the ability to sign DPOA docs. With the notary pt signed the DPOA docs. Pt's daughter Ashley is first DPOA and Michelle is 2nd. SW team will contnue to follow pt during her stay on this unit.
--- NOTE | 2019-09-06 19:14 | NUR ---
PATIENT HYPERVERBAL AND RESTLESS. PACED CONTINUOUSLY ALL DAY. MULTIPLE REQUESTS TO FILL HER NEEDS. HAD MEETING AND SISTER SIGNED DPOA PAPERWORK. APPEARED TO BE SO HAPPY ABOUT IT. MED COMPLIANT. HAD SEROQUEL FOR ANXIETY THIS MORNING. ALSO REQUESTED FLONAZE FOR SINUS ISSUES. COOPERATIVE WITH STAFF -
[2019-09-06 19:19] VITALS: BP 144/62
--- NOTE | 2019-09-07 03:30 | NUR ---
ASSUMED CARE OF PATIENT ON 09/06/2019 AT 1915. PATIENT IS PACING AROUND THE UNIT APPEARING ANXIOUS. THIS NURSE CONDUCTED ONE TO ONE WITH PATIENT AND AFFECT CHANGED IMMEDIATELY TO RELAXED AND EUTHYMIC. SHE REPORTS THINGS ARE 'GOING WELL AND THAT MY DAUGHTER IS MY DPOA SO THAT IS GOOD.' SHE APPEARS POSITIVE ABOUT THIS OUTCOME AND FACILITATING HER DISCHARGE FROM THE HOSPITAL. SHE CONTINUES TO BE HYPERVERBAL AT TIMES REQUIRING REMINDERS TO SLOW THE RATE OF SPEECH. SHE IS OBSERVED TO HAVE INITIAL AND MIDDLE INSOMNIA THROUGHOUT THE EVENING. PATIENT STATES 'IM JUST USE TO STAYING UP LATE SO I DONT SLEEP.' NURSING STAFF DISCUSSED WITH PATIENT WAYS TO CALM SELF TO ALLOW FOR HEALTHY SLEEP HYGIENE. SHE DENIED SI HI AND HALLUCINATIONS. SHE DENIED MEDICAL CONCERNS WITH NO S/S OF DISTRESS. NURSING WILL MAINTAIN ALL PRECAUTIONS TO ENSURE SAFETY AT ALL TIMES.
[2019-09-07 08:37] VITALS: BP 117/46
--- NOTE | 2019-09-07 10:35 | NUR ---
ASSUMED CARE OF PATIENT AT 0715 ON 09/07/18. 0730 PATIENT IN DAYROOM ASKING FOR COFFEE. COFFEE GIVEN AND PATIENT WATCHING TV ON COUCH WAITING FOR BREAKFAST. PATIENT IS CALM AND COOPERATIVE. AFTER BREAKFAST PATIENT IS WALKING THE [place]. MEDS TAKEN WITHOUT DIFFICULTY. PATIENT TO ROOM AND ASSESSMENT DONE AT 0850 IN ROOM. PATIENT DENIES SI/HI AND AVH. PATIENT STATES NO PAIN AND RATES PAIN A 0 WITH THE NUMERIC PAIN SCALE. STATES LBM WAS 09/07/19. COMPLAINS OF BEING BORED PATIENT STATES " I HAVE TAKEN TWO NAPS ALREADY AND WOULD LIKE TO STAY AWAKE. THIS IS HER GOAL FOR THE DAY. NO CONCERNS VOICED. PATIENT REQUESTS TO TAKE SHOWER, SUPPLIES GIVEN AND PATIENT IN SHOWER AT 0920 AM.
--- NOTE | 2019-09-07 19:52 | NUR ---
ASSUMED CARE ON 09/07/19 @ 19:15, AMBULATING IN THE HALLWAY FROM DAY ROOM TO BEDROOM. ASKED FOR LOTION, PROVIDED AND RETURNED LOTION BOTTLE TO HER LOCKER REQUESTED. SHE ALSO ASKED FOR HER PERFUME, SHE ALREADY STRONGLY SMELLED OF SCENT, THIS REQUEST WAS DENIED AND THE REASON EXPLAINED. BECAME AGITATED AND IS ROCKING BACK AND FORTH AT THIS TIME.
--- NOTE | 2019-09-07 21:24 | NUR ---
ACCEPTED HS MEDICATIONS, ABLE TO SWOLLOW WHOLE WITH WATER, CONTINUES TO AMBULATE FROM BEDROOM TO DAY ROOM, SITS AND ROCKS BACK AND FORTH AND THEN RETURNS TO BEDROOM REPEATEDLY.
[2019-09-07 21:57] VITALS: BP 117/46
--- NOTE | 2019-09-08 06:08 | NUR ---
SLEPT 1.1 HOURS
--- NOTE | 2019-09-08 07:30 | NUR ---
Assumed care of patient this am. Patient up and in the mileu drinking coffee. Patient ambulates with out assistance. Patient takes medications whole with fluids. Patient is very energetic and paces around the unit. Patient denies pain. Patients assessment shows clear breath sounds, active bowel sounds, and s1 s2 heard with auscultation.
[2019-09-08 08:00] VITALS: BP 126/59
[2019-09-08 08:19] VITALS: BP 126/59
[2019-09-08 19:08] VITALS: BP 91/54
[2019-09-08 21:56] VITALS: BP 91/54
--- NOTE | 2019-09-09 02:29 | NUR ---
Assumed care at 1915. Pt. up ambulating hallways ad yohan and making multiple statements and requests. Pt. took evening meds whole and without difficulty. Pt. is moderately groomed and makes repeated comments regarding her hair. Pt. awoke and ambulated to living room approximately 1130 pm and waws agitated that she could not stay awake and remain in living room. She returned to room without incident and fell back to sleep quickly. [place] level due to be drawn this am.
--- NOTE | 2019-09-09 05:00 | NUR ---
Pt. was awake and ambulating x 2 throughout casino shift manager. She was easily redirected to room and back to bed. Pt. up for morning at 0500 and is sitting on couch rocking back and forth. She is quick and short when questioned. She states that rocking is comforting for her and is "her yoga". No signs of distress.
--- NOTE | 2019-09-09 05:33 | NUR ---
PATIENT HAS BEEN UP AND DOWN FROM BED TONIGHT. SHE DID GO BACK TO BED WHEN ASKED TO AT 0100. SHE GOT BACK UP BEFORE [address] ON COUCH AND ROCKED BACK AND FORTH. SHE SEEMS TO ROCK WHEN SHE THINKS PEOPLE ARE WATCHING HER. PATIENT HAS BEEN WALKING VERY FORCEFULLY AND FAST IF SHE IS ANGRY ALL NIGHT. PATIENT, AFTER NOT GETTING ATTENTION IN DR CAME TO NURSE STATION AND SAID SHE WANTED AN ANXIETY PILL. I TOLD HER, I WOULD BE GLAD TO GIVE HER ONE IF SHE WILL GO LAY DOWN AFTER I GIVE IT TO HER. SHE ADMANTLY SAID, FORGET IT! i'M NOT GOING TO LAY DOWN. I WENT ON TO EXPLAIN THAT IF SHE IS TRULY ANXIOUS THEN THE MED WILL WORK BETTER TO CALM HER IF SHE CAN LAY QUIETLY IN A QUIET ROOM FOR A WHILE TO LET THE MED TAKE EFFECT. SHE STORMED OFF TO HER ROOM. I WENT TO HER ROOM AND TRIED TO TALK AND CALM HER. SHE SAT ON HER BED ROCKING AND WANTED TO ARGUE ABOUT WHO DECIDES HOW MUCH SLEEP SHE NEEDS. I EXPLAINED TO HER THAT SHE ONLY HAD ONE HOUR OF SLEEP THE NIGHT BEFORE. SHE DENIES THAT AND TOLD ME I WAS WRONG AND THAT SHE SLEPT TILL 4 AM THEN. I LEFT THE ROOM TO GIVE HER SPACE. SHE GOT UP AND STORMED INTO THE DINING ROOM AND SAT ON COUCH AND BEGAN ROCKING. PATIENT VERY ANGRY AND SHORT WHEN TALKING TO OR ANSWERING QUESTIONS. WILL CONTINUE TO MONITOR.
--- NOTE | 2019-09-09 06:36 | NUR ---
PATIENT APOLOGIZED TO THIS NURSE FOR BEING RUDE AND ARGUMENTATIVE. SHE STATES SHE JUST WANTS TO GET OUT OF HERE AND SHE IS EXCITED THAT DAUGHTER IS HER DPOA AND FEELS IT WON'T BE LONG FOR HER TO GO HOME.
[2019-09-09 07:24] VITALS: BP 107/53
--- NOTE | 2019-09-09 11:48 | NUR ---
Awake and alert. Orientated X4, denies pain, SI/HI. Walks with fast pace and appeared angry this morning with short, terse responses and fixed expression. Occassionally rocks back and forth in chair but then ceases spontaneously. Affect brighter in late morning, more conversant, watching TV and participating in group. Breath sounds clear t/o, bilaterally equal. Reg HR auscultated. Color pink with brisk capillary refill and palpable peripheral pulses. Voiding independently. Active bowel sounds over soft, flat abdomen.
--- NOTE | 2019-09-09 15:18 | NUR ---
DE spoke with Michelle to see if any places have been chosen for pt. She said that she looked into pt's preference of [facility] and does not like that idea; she read online the reviews which are not good. She said she will have Ashley send her the list that DE gave her so she can review the options and then email DE choices to send referrals to. SW team will continue to follow pt during her stay on this unit.
[2019-09-09 20:07] VITALS: BP 98/55
--- NOTE | 2019-09-10 04:10 | NUR ---
ASSUMED CARE ON 09/09/19 @ 19:20, SITTING IN DAY ROOM ON COUCH WATCHING TV AND SOCIALIZING WITH PEERS. A&OX3-4. DENIES SI, HI, A/V HALLUC. REPORTS R KNEE PAIN OF 5/10 AND REQUESTS [id number]. DENIES DEPRESSION, REPORTS ANXIETY, REQUESTS SEROQUIL 25. BOTH PROVIDED WITH HS MEDS. COOPERATED WITH ASSESSMENT, HRRR, S1S2 AUSCULTATED, LUNGS CTA, ABD N X 4 Q REPORTS BM TODAY. RETIRED TO BED @ 2200. SPOKE TO THIS NURSE ABOUT EMBROIDERY A HOBBY AND FAVORITE COOKING SPICES.
[2019-09-10 05:01] VITALS: BP 98/55
--- NOTE | 2019-09-10 06:29 | NUR ---
SLEPT 6.4 HOURS OVERNIGHT
[2019-09-10 09:06] VITALS: BP 120/62
--- NOTE | 2019-09-10 11:38 | NUR ---
DE contacted [facility] and spoke to Bonny in admissions. She gave her an update about pt. Bonny gave DE the number of [phone] to fax a referral to. DE faxed a referral to [facility]. DE team will continue to follow pt during her stay on this unit.
--- NOTE | 2019-09-10 14:43 | NUR ---
DE received a call from Christie with [facility] stating they cannot accept pt and she does not know why, but it could be due to pt behaviors. DE provided this update to pt that they could not accept her; she did not tell pt due to behaviors because this may cause pt more upset. Pt did not like her answer and feels like her daughter should be doing this process alone. She also said they doctor said she could leave in a couple days. SW explained that she did not hear that from the doctor. DE received a call from Michelle and DE provided her an update. DE told her and Ashley that she will send them a list of providers who SW on this unit work with to place persons with behaviors. DE sent them an email with [facility], [facility], [facility], and [facility] as options. Ivanna from [facility] visited with another pt. When she was done DE talked to her about pt. Ivanna said she would like a referral faxed to [phone]. DE faxed referral. DE team will continue to follow pt during her stay on this unit.
--- NOTE | 2019-09-10 16:21 | NUR ---
Up ambulating in unit without s/o distress. Occassional rocking back and forth. Much happier today and more patient in waiting for requests. Compliant with phone restrictions. Denies SI/HI. Stated knee was hurting after lunch 12/21 and requested Tylenol which relieved her pain. Breath sounds clear t/o, bilaterally equal. Initially slightly coarse in RLL, cleared with spontaneous cough. Reg HR auscultated. Color pink with brisk capillary refill and palpable peripheral pulses. Voiding independently. Active bowel sounds over soft, flat abdomen. Skin intact, took shower and washed hair.
[2019-09-10 19:15] VITALS: BP 126/60
[2019-09-10 20:30] VITALS: BP 126/60
--- NOTE | 2019-09-10 22:50 | NUR ---
Pt sitting in TV room at start of shift watching TV. No rocking motions noted. Pt. has large amount of makeup on. Affect flat when non-verbal and brightens with conversation. Pt. is up ad yohan with fast and steady gait. No safety concerns with patient ambulating. Pt. took meds whole with thin liquids without difficulty. Pt. voices no concerns or complaints at this time.
--- NOTE | 2019-09-10 23:29 | NUR ---
2865 PRN Seroquel given for anxiety. Pt. sitting "cymro" style in bed and rocking forcefully back and forth.
[2019-09-11 07:30] VITALS: BP 139/79
[2019-09-11 10:38] VITALS: BP 139/79
--- NOTE | 2019-09-11 11:04 | NUR ---
ASSUMED CARE AT 0700 THIS MORNING. PT. IMEDIATELY WANTED TO TAKE A SHOWER, PUT ON PERFUME AND MAKE UP. SHE WAS ALLOWED TO DO THIS BUT WAS INFORMED SHE COULD ONLY TAKE ONE SHOWER TODAY. SHE AGREED AT THAT TIME. SHE CONTINUES TO WALK VERY BRISKLY FROM HER ROOM TO THE DINING ROOM. SHE ALSO ROCKS HER SELF BACK AND FORTH WHEN SITTING ON THE COUCH FOR SELF STIMULIZATION. SHE CONTINUES TO ATTEMPT TO BE MANIPULATIVE WITH STAFF, GOING FROM PERSON TO PERSON TO GET WHAT SHE CAN NOT GET FROM OTHERS. SHE WILL NOT SIT AND HAVE A ONE TO ONE SHE IS VERY GUARDED. TOOK HER MEDICATIONS WITHOUT DIFFICULTIES.
--- NOTE | 2019-09-11 11:09 | NUR ---
Nutrition followup: Pt continues to eat 100% of meals on regular diet with Ensure BID. Drinks 100% of supplements. Enjoys the foods here. Weight up at present 5# from admit. Continues on vitamin D supplementation, 5000 IU daily for vitamin D deficiency. No new labs to assess. Continue to low risk.
--- NOTE | 2019-09-11 16:52 | NUR ---
DE received an email from Ashley asking her to send a referral to [facility] for pt. DE sent referrals to both. Zee with [facility] came and interviewed pt. She said most likely they will accept and contact DE to set up discharge. DE emailed Ashley and Michelle and provided an update. Pt came to DE and told her she thinks she would like [facility]. She just hopes they can allow her to smoke cigarettes there. DE team will continue to follow pt during her stay on this unit.
[2019-09-11 19:29] VITALS: BP 102/61
--- NOTE | 2019-09-12 04:08 | NUR ---
Assumed care of pt @ 1900. Pt calm et cooperative this shift. Took meds whole without difficulty. Ambulates the halls ad yohan with steady gait. Was given PRN Tylenol for pain in R knee et Cepacol Lozenge for ST. No behaviors noted this shift. Currently resting in bed with eyes closed. Will continue to monitor per protocol.
[2019-09-12 07:55] VITALS: BP 106/62
[2019-09-12 19:30] VITALS: BP 125/57
--- NOTE | 2019-09-12 19:44 | NUR ---
Up ambulating in unit without s/o distress. Happy affect most of day, focusing on discharge. Alert and orientated X4. Denies SI/HI. Requested Tylenol mid morning for R knee pain of 5, decreased to 5. Breath sounds clear t/o, bilaterally equal. Reg HR auscultated. Color pink with brisk capillary refill and palpable peripheral pulses. Voiding independently. Active bowel sounds over soft, flat abdomen.
[2019-09-13 00:58] VITALS: BP 125/57
--- NOTE | 2019-09-13 02:14 | NUR ---
1999 Pt. up ad yohan with fast but steady gait. Pt. currently watching TV in day room. Took meds whole without difficulty. Pt. denies pain and has no complaints. Pt. concerned with discharge planning. Reassurance and education given regarding discharge planning process. Pt. is a/o x 4.
--- NOTE | 2019-09-13 04:36 | NUR ---
0230 Pt. awake and requested to sit in day room. Pt. rocking occasionally and states that she cannot sleep because she went to bed early. Denies pain. No distress noted. Affect flat, eyes puffy and pt. appears sleepy. Reassurance given and education done regarding sleep deprivation and quality of sleep. Pt. voiced understanding but refuses to go back to sleep.
--- NOTE | 2019-09-13 04:40 | NUR ---
0330 PRN cepacol given per pt. request for "sore throat". Pt. remains awake in day room.
--- NOTE | 2019-09-13 06:46 | NUR ---
Pt. up from approximately 0230 to 0430 sitting in day room. Occasional rocking noted. 0330 PRN Cepacol given per pt request for "sore throat". 0430 Pt. back to sleep with no complaints of sore throat. Respirations even and non-labored and no distress noted. Bed in low and locked position with side rails up x 2.
[2019-09-13 07:40] VITALS: BP 121/51
--- NOTE | 2019-09-13 11:23 | NUR ---
DE contacted Zee the liason with [facility] who said that pt's application had been denied by administration. She said that she talked with [facility] who is a smoking facility, and they said they are okay with taking pt. DE provided an update to pt's family and also sent a few more options for referrals to them. SW team will continue to follow pt during her stay on this unit.
--- NOTE | 2019-09-13 12:01 | NUR ---
Date of Admission: 08/23/19 Date of Activity Therapy Assessment: 08/26/19 Activity Goal: Manage anxiety symptoms Initial Goal: 2 Group activities/day Weekly progress towards goal: Achieving current goals Group participation level: Full Behaviors observed: Patient has exhibited appropriate social boundaries overall. Patient's requests and interruptions have minimized as well. She continues to rock back and forth, though she states that when she does this, she is practicing yoga. Plan: No change towards goal
[2019-09-13 12:51] VITALS: BP 121/51
--- NOTE | 2019-09-13 12:56 | NUR ---
ASSUMED CARE AT 0700 THIS MORNING. PT. UP, SHOWERED AND PUTTING ON MAKEUP THEN TO DINING ROOM FOR BREAKFAST. SHE CONTINUES TO REQUEST THINGS OFTEN BUT NOT OFTEN SHE HAS BEEN. SHE HAS BEEN LIMITING HERSELF TO REQUESTS NO MORE THAN Q 2 HOURS. SHE HAS A SHORT CONVERSATION WITH THIS ENTERTAINMENT MUSICIAN. THIS IS AN IMPROVEMENT. SHE IS DRESSED NEATLY. SHE IS SMILING AND APPEARS HAPPY. HAS NOT ASKED FOR THE PHONE YET TODAY. ALERT AND ORITENTED TIMES 4. TOOK MEDICATIONS WITHOUT PROBLEMS NOTED.
[2019-09-13 21:09] VITALS: BP 112/57
--- NOTE | 2019-09-14 05:46 | NUR ---
Assessments completed. pt a&ox4. pacing alot throughout the night. tylenol given for knee pain, with partial relief. pt slept a total of 6hrs. no s/s of acute distress.
[2019-09-14 09:21] VITALS: BP 106/53
[2019-09-14 09:26] VITALS: BP 106/53
--- NOTE | 2019-09-14 14:05 | NUR ---
0781 ASSUMED CARE OF PATIENT ON 09/14/19. PATIENT IN DAYROOM SITTING FOR BREAKFAST. PATIENT HAS HAD SHOWER EARLY THIS AM DENIES NEEDS. WATCHING TV ON COUCH. 0930 ASSESSMENT DONE AT THIS TIME. PATIENT SITTING IN ROOM ON BED. PATIENT IS UPSET STATING "MY HAIR IS SHORTER AND WHEN i WOKE UP THIS AM IT WAS LIKE THAT" WATER MECHANIC TRIED TALKING TO PATIENT REGARDING HAIR BUT PATIENT SHUT DOWN STATING "I WANT THIS TO BE OVER AND MY HAIR LEFT ALONE". MEDS TAKEN WITHOUT DIFFICULTY STATES PAIN A 0 ON NUMERICAL SCALE. GOAL FOR THE DAY IS TO GO TO A FACILITY NOW PT CONCERN IS FOR THIS HAIR THING TO QUIT. 1300 PATIENT REQUESTING MAKE-UP TO FRESHING UP WATER MECHANIC EXPLAINS THAT IT WILL HAVE TO WAIT A BIT STAFF IS BUSY AT THE MOMENT. PATIENT VOICED UNDERSTANDING. A + O X 4, LS CLEAR
[2019-09-14 19:48] VITALS: BP 114/62
--- NOTE | 2019-09-15 04:27 | NUR ---
No concerns overight. pt approp and communicates needs appropraitely. pt wrote down order for breakfst and wants nurse to call order it the morning just like the previous day. pt stated that she is looking forward to [facility] and that she did enjoy her breakfast yesterday. no s/s of distress. pt sleep well with little interruptions during the night. will cont to monitor
[2019-09-15 09:20] VITALS: BP 115/52
[2019-09-15 09:50] VITALS: BP 115/52
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
[2019-09-15 20:00] VITALS: BP 126/65
[2019-09-16 00:07] VITALS: BP 115/52
--- NOTE | 2019-09-16 02:32 | NUR ---
PT CARE ASSUMED AT 1900 WITH PT IN THE ACTIVITY ROOM WITH OTHERS PTS WATCHING TV.PT ASKED TO SPEAK WITH MUM AND WAS GIVEN A PHONE BY STAFF.PT CONTINUE TO WATCH TV .PT TOOK MEDICATIONS WITH NO DIFFICULTIES.PT WAS APPROPRIETE ABD COOPERATIVE .PT WENT TO BED WITH NO COMPLAINS.WILL CONTINUE TO MONITOR
[2019-09-16 06:45] LABS: HEMATOCRIT 38.8 % (37.0-47.0); MCH 33.1 pg (26.0-34.0); MCHC 33.5 g/dL (28.0-37.0); MCV 98.9 fL (80.0-100.0); RBC 3.92 mil/uL (4.20-5.00); WBC 8.6 thou/uL (4.0-11.0)
[2019-09-16 06:59] LABS: CALCIUM 9.4 mg/dL (8.5-10.1); CREATININE 0.9 mg/dL (0.6-1.0); POTASSIUM 4.4 mmol/L (3.5-5.1)
[2019-09-16 07:48] VITALS: BP 99/48
[2019-09-16 07:49] VITALS: BP 100/51
[2019-09-16 09:47] VITALS: BP 100/51
--- NOTE | 2019-09-16 12:17 | NUR ---
0645 RESUMMED CARE FROM OVERNIGHT SHIFT, PATIENT UP IN DAY ROOM AWAITING BREAKFAST. PATIENT STILL ROCKS BACK AND FORTH WILL SITTING ON THE COUCH, PATIENT IS ANXIOUS. PATIENT ATE BREAKFAST, TOOK MEDICATION WITHOUT INCIDENCE. PATIENT PARTICPATES IN GROUPS, COMES TO THE NURSES STATION TO ASK FOR MAKEUP BAG. POSSIBLE D/C later in the week. PATIENT IS REDIRECTABLE AND KNOW BEHAVIOR PROBLEMS. WILL CONTINUE TO MONITOR PATIENT FOR SAFETY AND BEHAVIORS.
--- NOTE | 2019-09-16 12:43 | NUR ---
DE spoke with Audrey Fong, Admin for [facility]. DE provided her info about pt. She asked that DE fax a referral to [phone]. DE faxed referral. DE provided update to Michelle via email. DE rose will continue to follow pt during her stay on this unit.
[2019-09-16 20:35] VITALS: BP 108/51
--- NOTE | 2019-09-17 00:29 | NUR ---
Care assumed of patient at 1915: Patient alert and oriented x4. Patient pleasant and cooperative. Patient disruptive during nursing assessment by asking about her personal clothing, make up and hygiene products at least 3 different times. Patient required re-direction that nurse would be with her after nursing report. Patient hyperactive at times. Walking briskly from room to dining room several times. Patient observed rocking back and forth on one occasion earlier in the shift. Patient denies feeling anxious or depressed. Denies SI/HI/AH/VH. No delusional or paranoia behaviors observed. Patient having obsessive thoughts about feeling that her hair is changing colors and falling out. Reports that she feels her hair is "several inches shorter" than we she first arrived to unit. Patient was not observed manipulating staff in any manner this evening. Did not request the phone nor did she receive any phone calls. Took HS medication whole without difficulty. Ate 100% HS snack. Retired to bed at a reasonable hour and appears to be resting quietly at this time.
[2019-09-17 09:40] VITALS: BP 117/62
--- NOTE | 2019-09-17 12:20 | NUR ---
DE contacted Audrey at [facility] and was told she was assessing a new pt and will call DE back when finished. SW team will continue to follow pt during her stay on this unit.
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
[2019-09-17 19:37] VITALS: BP 112/62
--- NOTE | 2019-09-18 00:24 | NUR ---
Care assumed of patient at 1915: Patient seated in dayroom at start of shift. Calm, pleasant and cooperative. Interacting well with staff and peers. Alert and oriented x4. Denies SI/HI/AH/VH. No s/s of delusional or paranoia behaviors observed. Denies pain or discomfort. No rocking or hyperactivity observed. No agitation or labile behaviors observed. Took HS medication whole without difficulty. Ate 100% HS snack. Comparing to past behaviors, patient had a really well evening. Patient able to retire to bed at a reasonable hour and has been able to rest quietly.
[2019-09-18 08:04] VITALS: BP 114/54
[2019-09-18 09:01] VITALS: BP 114/54
--- NOTE | 2019-09-18 12:15 | NUR ---
Followup: continues to eat 100% of meals and supplements. Nutrition goals met. Low nutrition risk
--- NOTE | 2019-09-18 17:37 | NUR ---
PT ALERT AND ORIENTED TIMES FOUR. VSS, PT BOO SI/HI/AH/VH. PT ATTENDED GROUPS THIS SHIFT. PT HAS BEEN UP IN THE DINNING ROOM INTERACTING WITH HER PEERS. PT TOLERATES MEDS AND MEALS. PT PROGRESSING TOWRADS POC GOALS.
[2019-09-18 19:54] VITALS: BP 107/60
--- NOTE | 2019-09-19 04:39 | NUR ---
Assumed care of pt @ 1900. Calm et cooperative this shift. Took medications whole without difficulty. VSWNL. Health assessment with no abnormalities noted at present time. Socializes with peers on the unit. Ambulates the halls ad yohan with steady gait. Currently resting in bed with eyes closed. Will continue to monitor per protocol.
[2019-09-19 09:18] VITALS: BP 103/60
--- NOTE | 2019-09-19 10:20 | NUR ---
Sw received denials from [facility] and [facility]; both said they could not accomodate pt's needs. SW team will continue to follow pt during her stay on the unit.
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
[2019-09-19 19:33] VITALS: BP 126/57
[2019-09-19 22:43] VITALS: BP 126/57
--- NOTE | 2019-09-20 00:17 | NUR ---
PATIENT WAS UP IN DINING ROOM THIS EVENING WHEN THIS NURSE BEGAN SHIFT AT 1900. SHE HAS BEEN SOCIAL WITH STAFF AND OTHERS. SHE HAS BEEN HAPPY, CALM AND COOPERATIVE. SHE DENIES PAIN. SHE TOOK HER MEDS WHOLE AND WAS IN BED BY 2100. SHE IS SLEEPING. BED IN LOW POSITION. SHE DID HAVE SOME COARSENESS ON EXPIRATORY BREATHS ON AUSCULTATION BUT CLEARED WHEN I HAD HER COUGH AND CLEAR HER THROAT. LUNGS BILATERALLY THEN CTA. PATIENT WAS FORMER SMOKER. PATIENT STATES SHE HAD 2 BMS TODAY. NO EDEMA. CONTINUING TO MANAGE AND MONITOR.
--- NOTE | 2019-09-20 03:29 | NUR ---
PATIENT HAS BEEN UP TWICE SINCE MIDNIGHT. SHE HAS HURRIDLY RUSHED TO THE WATER MACHINE FOR ICE. SHE HAS C/O MOUTH DRYNESS AND THIRST TONIGHT. AT 0220 PT CAME TO NURSE STATION REQUESTING SOMETHING FOR SLEEP. SHE WAS TALKING FAST AND APPEARED EXCITED. GAVE PATIENT SEROQUEL 25MG PO TO HELP HER CALM DOWN AND MAYBE SLEEP. SHE WENT ON TO TELL ME ABOUT HER SISTER FROM [place] VISITING TODAY AND THAT THE SISTER AND HER DAUGHTER (DPBIANCA) WENT AND LOOKED AT A FACILITY PLACEMENT THAT PATIENT WAS INTERESTED IN MOVING TO. THEY TOLD PATIENT HOW NICE A PLACE IT WAS AND HOW THEY THINK PATIENT WILL LIKE IT. SHE COULDN'T REMEMBER NAME OF PLACE BUT IT IS ON [facility]. SHE IS VERY EXCITED ABOUT THE POSSIBILITY OF BEING ABLE TO GO THERE. SHE SAID SOMEONE SHOULD BE COMING OUT SOON TO DO AN ASSESSMENT ON HER FOR PLACEMENT. PATIENT IN HAPPY MOOD AND TOO EXCITED TO SLEEP. UNABLE TO TURN OFF HER THOUGHTS. CONTINUING TO MONITOR. PATIENT IN ROOM AND WILL TRY AND GO BACK TO SLEEP.
[2019-09-20 09:50] VITALS: BP 88/56
--- NOTE | 2019-09-20 13:14 | NUR ---
Date of Admission: 08/23/19 Date of Activity Therapy Assessment: 08/26/19 Activity Goal: Manage anxiety symptoms Initial Goal: 2 Group activities/day Weekly progress towards goal: Achieving current goals Group participation level: Full Behaviors observed: Appropriate social boundaries overall - including less interruptions in discussions. Plan: No change towards goal
--- NOTE | 2019-09-20 13:15 | NUR ---
This morning Erica with [facility] met with pt. In tx team it was discussed that the first place to accept pt needs to be the place that pt discharges too because she no longer meets criteria to remain on this unit; DE was told [facility] would not be doing an assessment until Saturday 09/23. DE contacted Scott with [facility] and asked if they could send somebody to assess pt today. He explained that the person who assess pt's is not in today, and the director of psychology just walked out; the earliest he could do the assessment is Monday. He did say, that if pt needed to go to [facility] to d/c they could still do an assessment at AT for pt to go to [facility]. DE contacted Erica with [facility] on her cell and desktop. No answer. Lft msg. DE provided an update to pt's sister and daughter. They are both hoping to place pt at [facility]. DE asked if pt could d/c with them; Michelle is in a hotel room and Ashley lives in a very small place and already has her gmother living with her so that plan is not possible. SW team will continue to follow pt during her stay on this unit.
--- NOTE | 2019-09-20 13:23 | NUR ---
PATIENT HAS BEEN CALM AND AGREEABLE. FAMILY VISITED AND MEDICARE PAPERWORK PROCESSED. SHOWERED EARLIER THIS MORNING. DENIES S/I OR H/I - MEDICATION COMPLIANT.
[2019-09-20 19:30] VITALS: BP 105/58
--- NOTE | 2019-09-21 01:37 | NUR ---
ASSUMED CARE OF PATIENT ON 09/20/19 AT 1915, SHE APPEARS WITH AN EXPANSIVE AFFECT AND EASILY TALKS TO THIS NURSE. SHE REPORTS 'IM FEELING SO MUCH BETTER AND IM GETTING TO GO TO A PLACE WHERE I CAN DO ALL KINDS OF THINGS.' SHE IS DISCHARGE FOCUSED. SHE DENIES SI HI HALLUCINATIONS, DEPRESSION, ANXIETY. SHE INTERACTS WITH OTHER PATIENTS APPROPRIATELY. SHE DENIED MEDICAL CONCERNS WITH NO S/S OF DISTRESS. NURSING WILL MAINTAIN ALL PRECAUTIONS TO ENSURE SAFETY AT ALL TIMES.
[2019-09-21 09:12] VITALS: BP 129/58
--- NOTE | 2019-09-21 14:21 | NUR ---
Up ambulating in unit without s/o distress. Happy affect and expressing anticipation of visitors for her birthday. Denies SI/HI, alert and orientated X4. Breath sounds clear t/o. Reg HR auscultated. Color pink with brisk capillary refill and palpable peripheral pulses. Independent with voiding. Active bowel sounds over soft, flat abdomen. Showered and applied makeup this AM independently. 1400 Participating in groups. Currently watching TV with peers without s/o distress.
[2019-09-21 20:54] VITALS: BP 109/55
--- NOTE | 2019-09-22 04:04 | NUR ---
Assumed care of pt @ 1900. Pt calm et cooperative this shift. Denies SI/HI. Ambulates halls ad yohan with steady gait. VSWNL. Health assessment with no abnormalities at present time. Takes medications whole without difficulty. Currently resting in bed with eyes closed. Will continue to monitor per protocol.
[2019-09-22 07:35] VITALS: BP 105/54
--- NOTE | 2019-09-22 12:29 | NUR ---
ASSUMED CARE OF PATIENT AT 0700 - AMBULATORY AND SELF CARE. DENIED ANY S/I OR H/I. PLEASED ABOUT ASSESSMENT FROM [facility] ON MONDAY. HOPING THIS WILL BE WHERE SHE RESIDES. AGREEABLE AND COMPLIANT WITH MEDICATIONS. MOOD EUTHYMIC AND AFFECT BRIGHT. MAKES NEEDS KNOWN. APPETITE GOOD - SELF CARE - REDIRECTABLE AND RESPONSIVE TO QUESTIONS ADDRESSED TO HER.
[2019-09-22 14:59] VITALS: BP 103/55
[2019-09-22 19:45] VITALS: BP 103/55
[2019-09-22 19:56] VITALS: BP 103/55
--- NOTE | 2019-09-23 03:14 | NUR ---
1930 Pt. up ambulating ad yohan. Currently in Day Room sitting on couch "american style" and conversing with other patients and staff. Pt. made request to get a purse from her belongings in the locker room. Pt. discared a green/white patterned cloth-like purse and retrieved a new red purse from her belongings. Gait is fast and steady. Pt. denies any pain and no signs or symptoms of distress noted. 2030 Pt. took scheduled medications whole with thin liquids. No chocking or coughing noted with po intake. Pt. is groomed neatly and makes repeated applications of makeup to face. No signs or symptoms of distress noted. Respirations even and non-labored. 0230 Pt. remains asleep. Pt. has slept during the majority of this shift without any difficulties. No signs or symptoms of distress noted. Call light within reach. Bed in low and locked position with side rails up x 2. difficulties 2300 Pt. in bed sleeping on right side. Respirations even and non-labored. NO signs or symptoms of distress noted.
--- NOTE | 2019-09-23 06:30 | NUR ---
0610 AM medication given. Pt. swallowed with thin liquids. No difficulties with coughing or choking noted. Pt. is up at yohan and currently in Day Room waiting for breakfast.
[2019-09-23 09:02] VITALS: BP 106/51
--- NOTE | 2019-09-23 11:13 | NUR ---
OBSERVED TO BE ANXIOUS PACING IN HALLWAYS,OBSESSING ABOUT HAIR AND MAKEUP AND MAKEUP IS HEAVILY APPLIED. DENIES C/O PAIN AND DISCOMFORT. STATES IS ANXIOUS ABOUT [facility] FACILITY COMING TO EVAL HER TODAY BUT WILL FEEL BETTER AFTER THIS EVAL DONE. GAIT STEADY WITHOUT Assistive devices.
--- NOTE | 2019-09-23 11:55 | NUR ---
DE contacted Scott with [facility] and asked when the ass. for pt will be completed today. He responded he will be at the hospital between [id number]. DE asked if pt is accepted today can she d/c. He said yes, he will make sure her space as the bare min. requirements of a bed and has been sanitized. DE provided an update to pt's sister Michelle who said she may delay flight today in order to move pt. She said she also emphasized to [facility] that pt needs to d/c. DE provided an update to nursing and psych doctor and set pt's d/c tentatively for today at 1600. DE team will continue to follow pt during her stay on this unit.
--- NOTE | 2019-09-23 14:40 | NUR ---
DE D/C note DE received a call from Scott stating that [facility] will accept pt and is okay with her discharging from this unit at 1600. DE contacted Michelle Rivera and provided an updated. She told SW that her daughter Ashley will be transporting her; she is at the airport awaiting her flight. DE provided an update to pt who was very excited. No other needs for DE team to address at this time.
[2019-09-23] MEDS ORDERED: PROPRANOLOL 1010 MG PO (14:49)
[2019-09-23] MEDS ORDERED: TRAZODONE HCL100 MG PO (14:50)
[2019-09-23] MEDS ORDERED: ABILIFY 5 MG TAB5 M1 PO (14:50)
[2019-09-23] MEDS ORDERED: LITHIUM CARBON150 MG PO (14:52)
[2019-09-23] MEDS ORDERED: FLONASE 0.05%50 MCG NASAL (14:53)
[2019-09-23] MEDS ORDERED: SYNTHROID50 MCG PO (14:55)
[2019-09-23] MEDS ORDERED: VITAMIN D325 MCG PO (14:56)
--- NOTE | 2019-09-23 22:12 | D ---
[facility] [place] [address] DISCHARGE SUMMARY Name: BEV BEACH Room #: 518B-B DIS IN M.R.#: [id number] Admission: 08/23/19 Attend Phys: Mario Eid DO Discharge: 09/23/19 Date of : 57 Report #: [id number] THIS REPORT FOR: cc: DIMITRY - Family physician unknown FAM - Family physician unknown Mario Eid DO ~ THIS REPORT FOR: //name// CC: Mario MORAES unknown DATE OF SERVICE: 09/23/2019 INPATIENT PSYCHIATRIC DISCHARGE SUMMARY ATTENDING PHYSICIAN: Mario Eid DO SUCTION DRUM DRIER OPERATOR AT THE TIME OF DISCHARGE: Salvador Partida MD Additional Consutlant: Cleveland Jackson, Ph.D., neuropsychology. DISCHARGE DIAGNOSES: Bipolar 1 disorder, most recent episode manic with psychotic features, improved. Also new diagnosis, major neurocognitive disorder, likely multifactorial. Medical comorbidities are hypercalcemia improved with hydration, osteoarthritis of the knees, stable pain; hypothyroidism, on replacement; vitamin D deficiency, being replaced. DISCHARGE PLAN: She is discharging to [facility] today at 1600. Psychiatric and medical care to be performed by receiving facility. The patient will be in memory care. Her daughter, Carrol was transporting her to the facility. DIET: Regular with Ensure Enlive b.i.d. as a supplement. The patient has gained about 8 kilograms of this admission that would be on the order of 16-20 pounds, which is her desirable, so her BMI was 16 unchanged when she arrived, now it is up to 19.9 in normal range. DISCHARGE MEDICATIONS: Propranolol 20 mg p.o. at 0900 and 1500 for akathisia, trazodone 100 mg p.o. at bedtime for sleep, aripiprazole 25 mg p.o. daily for psychosis, lithium carbonate 450 mg p.o. b.i.d. with serial blood levels 1.2, Flonase 2 sprays each nostril daily for allergic rhinitis, levothyroxine sodium 50 mcg p.o. daily for hypothyroidism, vitamin D3 5000 international units p.o. daily for deficiency. [facility] [address] [place] [address] DISCHARGE SUMMARY Name: BEV [place] Room #: 518B-B DIS IN M.R.#: [id number] Admission: 08/23/19 Attend Phys: Mario Eid, Discharge: 09/23/19 Date of : 57 Report #: [id number] LABORATORY DATA: This admission, most recently hematology on 09/16/2019 was grossly normal. Chemistries on 09/16/2019, BUN 30, creatinine 0.9, sodium 140, potassium 4.4, chloride 106, bicarb 28. The patient had normal phosphorus. Total protein 6.7. She had a normal serum protein electrophoresis including no M-spike. Her PTH was intact at 41, which is within normal limits. Urinalysis was negative except for trace protein on 08/23/2019. Toxicology was negative, UDS. Also, this admission, the patient had electrocardiography due to her lithium treatment. Most recently on 08/23/2019, her QTC was 459, QT 345, PA 123. IMAGING THIS ADMISSION: Head CT was done, which showed generalized atrophy, white matter microvascular changes. Chest x-ray was positive for an irregular shaped 6 mm nodular density projected over the right lung base. Pulmonary nodule cannot be excluded. She will need a followup CT of the chest. Neuropsych findings: Also, this admission, the patient received batteries including the Patel Adult Reading Test, [place] Naming Test, Patel Verbal Learning Test, Trails B. Dr. Jackson's diagnoses were major neurocognitive disorder, unspecified, with poor insight of moderate severity, bipolar disorder, alcohol use disorder. The patient is likely unable to make informed and more reasoned decisions. REASON FOR ADMISSION: 08/23/2019, this patient was brought in by the independent CIT officer. There was a hotline and she had been followed. There was concern for self-care failure. She also had been having disorder, taking during conversations, weight loss. HOSPITAL COURSE: The patient was admitted to Geriatric Psychiatry Unit. She initially displayed delbert symptoms of lorene, so early efforts were to stabilize this. She was started on aripiprazole by a colleague at 10 mg. This was titrated to 25 mg daily. Also given continued lorene, I elected to start her on lithium carbonate. This was titrated to 450 mg p.o. daily with serial stable repeat blood level of 1.2. The patient was under nourished. There were concerns she may have multiple myeloma. Serum protein electrophoresis was negative. During the course of admission, we were able to get in touch with the daughter, Carrol, who is only 14 years or younger, who lives in the area, made visitation and her daughter, Michelle, who is her DPOA that lives in [place], who flew up to assist with the patient's case. We initially had some challenges finding on placement that would take the patient due to her desire to continue her tobacco use disorder. We succeeded though after some persistence in finding [facility]. The day of discharge, the patient was not suicidal or homicidal, felt to be in stable condition for step down to a memory care. PHYSICAL EXAMINATION: VITAL SIGNS: On the day of discharge are as follows: Temperature 37.2, pulse 60, respirations 15, BP 106/51, O2 sat 94%. [facility] [address] [place] [address] DISCHARGE SUMMARY Name: BEV [place] Room #: 518B-B DIS IN M.R.#: [id number] Admission: 08/23/19 Attend Phys: Mario Eid DO Discharge: 09/23/19 Date of : 57 Report #: [id number] MUSCULOSKELETAL: Normal gait and station. The patient did have excessive use of makeup and excessive use of hairspray, so was neatly stylized today. MENTAL STATUS EXAMINATION: This is a well-developed, petite female appearing stated age. Attention fair. Concentration fair. Speech is normal in rate, volume and tone. Thought process linear and goal directed. Thought content focused on discharge. Some psychomotor agitation, likely baseline. No psychomotor retardation. Denied SI or HI. Denied hopelessness, helplessness. Denied auditory, visual, or tactile hallucinations. Denies nightmares, flashbacks. Memory noted to be impaired, but not formally tested. Insight fair to limited. Judgment limited. Fund of knowledge below average. PROGNOSIS: For this patient is fair to guarded given her already having a dementia, her tobacco use and factor such of this are unfavorable; however, the patient now will be cared for in a Memory Care Facility and it is my hope that if she stays in a structured setting, there would no longer be concerns about the patient. <ELECTRONICALLY SIGNED> By: Mario Eid DO 09/23/19 [id number] Mario Eid, /nt
--- NOTE | 2019-09-24 12:01 | NUR ---
REPORT CALLED TO JUNE AT [facility]-DISCHARGE INSTRUCTIONS REVIEWED WITH PT AND SENT ALONG WITH RX TO [facility] IN ADDITION TO CHART COPIES OF DC SUMMARY H/P ETC. PT STATES UNDERSTANDING AND DENIES QUESTIONS/CONCERNS. PERSONAL BELONGINGS SENT WITH PT WELL BELONGINGS STORED IN SECURITY. PT DENIES SI/SH/HI AT TIME OF DC. LEFT UNIT VIA WC ACCOMP NIED BY STAFF AND SISTER TO SISTERS VEHICLE
== END 2019-09-23 15:55 | DRG 885 ==
LOC: ER 13:19 → SBH 15:30 → EROBS 15:30 → SBH 17:21
PROVIDERS: Emergency Medicine; Hospitalist; Nurse Practitioner Psychiatric/Mental Health; ADMIT Psychiatry & Neurology Psychiatry
DX: F31.2 Bipolar disorder, current episode manic severe with psychotic features (principal); F01.50 Vascular dementia, unspecified severity, without behavioral disturbance, psychotic disturbance, mood disturbance, and anxiety; F43.10 Post-traumatic stress disorder, unspecified; G89.29 Other chronic pain; M25.561 Pain in right knee; M17.0 Bilateral primary osteoarthritis of knee; E03.9 Hypothyroidism, unspecified; E55.9 Vitamin D deficiency, unspecified; F17.210 Nicotine dependence, cigarettes, uncomplicated; G47.00 Insomnia, unspecified; Z88.8 Allergy status to other drugs, medicaments and biological substances
CPT/HCPCS: 10880